=== PATIENT | female | born 2000 | race Caucasian/White ===

== ENCOUNTER 2018-09-03 21:00 | Emergency (ER) | payer BC ==
[~2018-09-03] VITALS: Ht 162.6 cm; Wt 61.4 kg
[2018-09-03] MEDS ORDERED: BUSPAR10 MG PO ×2 (21:27)
[2018-09-03] MEDS ORDERED: ZYRTEC-D 5 MG-11 TER PO (21:28)
[2018-09-03] MEDS ORDERED: LOESTRIN1.5/30 21DAY PO (21:28)
[2018-09-03] MEDS ORDERED: ATIVAN 1MG T1 MG/TAB PO (22:31)
[2018-09-03 22:34] VITALS: BP 142/80; PULSE 106; TEMP 98.4
== END 2018-09-03 22:38 | disposition home or self-care (01) ==
LOC: COL.ER 21:00
DX: F41.9 Anxiety disorder, unspecified (principal)